=== PATIENT | female | born 2000 | race African-American/Black ===

== ENCOUNTER 2023-03-19 14:10 | Observation (INO) | payer OTHER ==
[~2023-03-19] VITALS: Ht 163.8 cm; Wt 96.6 kg
== END 2023-03-19 17:15 | disposition home or self-care (01) ==
LOC: 8 EST LDRP 14:10
PROVIDERS: ADMIT Specialist; ATTEND Specialist
DX: Z34.93 Encounter for supervision of normal pregnancy, unspecified, third trimester (principal); Z3A.32 32 weeks gestation of pregnancy
CPT/HCPCS: 59025; 76805; 76817; 76818; G0378; 99281